=== PATIENT | male | born 1990 | race Caucasian/White ===

== ENCOUNTER 2018-08-20 06:55 | Day surgery (SDC) | payer OTHER ==
[2018-08-20] MEDS ORDERED: ceFAZolin 2 GM/50 ML 2 GM/50 ML BAG IV ONE (07:10)
[2018-08-20] MEDS ORDERED: LACTATED RINGERS 1,000 ML IV ONE ×2 (07:13→12:21)
--- NOTE | 2018-08-20 08:27 | ANESTHESIA ---
Pre-Anesthesia VS, & Labs - Diagnosis right hallux valgus - Procedure right metatarsal scarf osteotomy Vital Signs: Temp Pulse Resp BP Pulse Ox 36.2 C L 82 16 131/96 H 97 08/20/18 07:17 08/20/18 07:17 08/20/18 07:17 08/20/18 07:17 08/20/18 07:17 Height 5 ft 10 in Weight (kg) 88 kg - NPO >8 hours Home Medications and Allergies Home Medications: Ambulatory Orders No Known Home Medications 08/03/18 No Known Home Medications 08/03/18 Allergies/Adverse Reactions: Allergies Allergy/AdvReac Type Severity Reaction Status Date / Time No Known Drug Allergies Allergy Verified 05/25/16 08:36 Anes History & Medical History - Medical History Cardiovascular: reports: None Pulmonary: reports: None Gastrointestinal: reports: GERD Urinary: reports: None Musculoskeletal: reports: Other Endocrine/Autoimmune: reports: None Skin: reports: None Smoking Status: Never smoker Exam General: Alert Dental: WNL Neck Mobility: Normal Respiratory: Lungs clear Cardiovascular: Regular rate Plan Anesthesia Type: General Consent for Procedure(s) Verified and Reviewed: No Code Status: Attempt Resuscitation ASA classification: 2-Mild systemic disease Is this case an emergency?: No
[2018-08-20] MEDS ORDERED: KETOROLAC 30 MG/ML VIAL IVP ONE (09:00)
[2018-08-20] MEDS ORDERED: ONDANSETRON 4 MG/2 ML VIAL IVP ONE (09:00)
[2018-08-20] MEDS ORDERED: DEXAMETHASONE 4 MG/ML VIAL IVP ONE (09:00)
[2018-08-20] MEDS ORDERED: LIDOCAINE-MPF 2% 5 ML VIAL IM ONE (09:00)
[2018-08-20] MEDS ORDERED: MIDAZOLAM 2 MG/2 ML VIAL IVP ONE (09:00)
[2018-08-20] MEDS ORDERED: PROPOFOL 200 MG/20 ML VIAL IVP ONE (09:00)
[2018-08-20] MEDS ORDERED: fentaNYL 100 MCG/2 ML VIAL IVP ONE (09:00)
[2018-08-20] MEDS ORDERED: BUPIVACAINE 0.25%-EPI 1:200000 PF 30 ML VIAL ONE (09:10)
[2018-08-20] MEDS ORDERED: BUPIVACAINE 0.25% PF 30 ML VIAL ONE (09:30)
[2018-08-20] MEDS ORDERED: BUPIVACAINE 0.25% PF 30 ML VIAL SUBQ ONE ×2 (10:01)
[2018-08-20] MEDS ORDERED: oxyCODONE 5 MG TABLET PO PRN (12:00)
--- NOTE | 2018-08-20 12:10 | OPERATIVE REPORT ---
Operative Report - General Procedure Date: 08/20/18 Planned Procedure: Right Hallux Valgus Correction with Scarf Osteotomy and Modified Damon Pre-Op Diagnosis: Right Hallux Valgus Procedure Performed: Right Hallux Valgus Correction with Scarf Osteotomy and Modified Damon Post Op Diagnosis: Right Hallux Valgus - Procedure Note Primary Surgeon: Tucker Secondary Surgeon: Joey Estimated Blood Loss (mL): 5 Complications: None - Other Other Information/Narrative: Indication For Surgery: This is a 27-year-old male who has had bilateral hallux valgus since his youth. He has had pain over the medial eminence for multiple years which is worse with his work boots. He has modified his shoe wear and his activities but continues to have activity limiting pain and desires surgical management. The risks, benefits, and alternatives were discussed. Risks in clude pain, bleeding, infection, damage to nearby structures, numbness, recurrence of bunion, hallux varus, lack of symptom relief, implant complications, nonunion, need for further surgery, DVT, PE, stroke, and . Written consent was obtained. Procedure in Detail: The patient was met in the pre-operative hold area on the day of the procedure. The operative extremity was signed and questions were answered. The patient was brought to the operating room and a general anesthetic was administered. Supine position was used and bony prominences were padded. Standard prepping and draping was performed. A time out confirmed patient identification, laterality, procedure, allergies, antibiotics, and images. An Esmarch was used to exsanguinate the limb and the tourniquet was elevated to 250 mmHg. Total tourniquet time was 120 minutes. A 3 cm incision was made between the first and second metatarsal heads and blunt dissection was carried down. The neurovascular bundle was protected with a dull retractor. I identified the adductor tendon and the intermetacarpal ligament and sharply resected them from their attachments on the first ray. I took care to leave the flexor hallucis brevis attached to the lateral sesamoid. I incised the capsule between the sesamoid and the metacarpal head. I then pie crusted the lateral capsule between the metacarpal head and the proximal phalanx. A varus force was then applied to the toe and the toe freely moved in the varus. This wound was then packed with gauze A direct medial incision was made over the first metatarsal from the metatarsal phalangeal joint to just short of the tarsometatarsal joint. Blunt dissection was used to identify the dorsal cutaneous nerve and this was protected throughout the case. Full-thickness skin flaps were created. A full-thickness longitudinal capsular incision was made in the first MTP joint and the capsule was dissected off of the metatarsal head ensuring to preserve the plantar capsular attachments with the accompanying blood supply. A periosteal elevator was used to free the periosteum along the medial shaft. A silver osteotomy was then performed just off the cartilage surface ensuring to leave a medial shoulder. The distal dorsal transverse osteotomy was then made perpendicular to the first metatarsal shaft starting centrally and the metatarsal head. The total sawblade was left in place and the plantar proximal transverse osteotomy was made parallel to this ensuring to be within metaphyseal bone. The longitudinal osteotomy was then made parallel to the walking surface of the foot. A second proximal transverse osteotomy was made and a 4 mm chunk of bone was removed. A freer elevator was used to release the periosteum on the lateral surface to allow for the shift. I then shifted the plantar fragment laterally and pulled the dorsal fragment medially. This was then clamped in place and imaging confirmed excellent position. The plantar capsule was pulled on and the sesamoids reduced nicely. Satisfied with this position, countersunk 2.0 millimeter screws were placed proximally and distally confirming excellent purchase. The clamp was then removed and the fixation was stable. The medial shelf of bone was then excised with a sagittal saw. The wound was irrigated copiously. The medial shelf fragment was then flipped and inverted and placed plantarly at the osteotomy site. Images were again taken. I then reassessed the toe and found that there was good spread between the first and second toe and determined that an Roger osteotomy was not necessary. I then excised the excess medial capsule and performed a pants over vest plication and derotational capsular closure using 2-0 fiberwire, burying the knots. This was backed up with multiple 0 Vicryl sutures. The periosteal layer was then closed with 0 Vicryl. The skin was closed with 2-0 Vicryl in the subdermis and 3-0 nylon in the skin. 20 cc of quarter percent Marcaine without epinephrine was placed deep to the incision. A sterile bunion dressing was applied. The patient was awakened and transferred to the recovery room.
[2018-08-20] MEDS: fentaNYL 100 MCG/2 ML VIAL ONE ×3 (12:20→12:26)
[2018-08-20] MEDS ORDERED: HYDROmorphone 0.5 MG/0.5 ML SYRINGE ONE (12:21)
[2018-08-20] MEDS: ONDANSETRON 4 MG/2 ML VIAL IVP PRN ×2 (12:49→12:50)
[2018-08-20 13:34] VITALS: BP 135/69
== END 2018-08-20 06:56 | disposition home or self-care (01) ==
LOC: SDS 06:55
PROVIDERS: ATTEND Orthopaedic Surgery
PROC: 0QBN0ZZ Excision of Right Metatarsal, Open Approach (ICD-10-PCS; 2018-08-20)
PROC: 0QSN04Z Reposition Right Metatarsal with Internal Fixation Device, Open Approach (ICD-10-PCS; principal; 2018-08-20 08:15)
DX: M20.11 Hallux valgus (acquired), right foot (principal); M21.611 Bunion of right foot; M20.12 Hallux valgus (acquired), left foot; M21.612 Bunion of left foot; Z72.0 Tobacco use
CPT/HCPCS: 28299; J0690; J7120